=== PATIENT | female | born 1960 | race Caucasian/White ===

== ENCOUNTER 2019-06-17 14:28 | Outpatient (CLI) | payer MEDICARE ==
--- NOTE | 2019-06-17 14:50 | RAD ---
Exam: KUB HISTORY: Abdominal pain COMPARISON: None FINDINGS: There is a moderate amount retained stool within the colon. There are stable densities seen within the retained stool which may reflect ingested bismuth products. Bowel gas pattern otherwise is unobstructed. No additional suspicious calcifications are evident. There are phleboliths within th e lower pelvis. The umbilical limitation overlies the midline. There is mild spondylosis of the lumbar spine. There is mild degenerative changes of the left hip. IMPRESSION: Moderate amount of retained stool within the colon.
--- NOTE | 2019-06-17 14:53 | RAD ---
EXAM: Chest Two Views 06/17/2019 2:50 PM HISTORY: Chest pain COMPARISON: None. FINDINGS: Heart: Normal in size and contour. Pulmonary vessels: Normal. Costophrenic angles: Clear. Lungs: No confluent pneumonia, overt edema, pleural effusion, or other acute process. Pneumothorax: None. Osseous structures:Mild thoracolumbar scoliosis. Additional findings: Cholecystectomy IMPRESSION: No significant acute intrathoracic disease.
== END 2019-06-17 14:29 | disposition home or self-care (01) ==
LOC: RAD-FRANK 14:28
PROVIDERS: ATTEND Nurse Practitioner Family
DX: R07.9 Chest pain, unspecified (principal); R10.9 Unspecified abdominal pain; K59.00 Constipation, unspecified
CPT/HCPCS: 71046; 74018

== ENCOUNTER 2024-11-10 08:49 | Emergency (ER) | payer MEDICARE ==
[2024-11-10 10:12] LABS: #Basophils 0.03 10x3/uL (0.0-0.2); #Eosinophils Less than 0.03 10x3/uL (0.0-0.7); %Basophils 0.3 % (0.0-1.0); %Eosinophils 0.1 % (0.0-10.0); %Lymphocytes 19.9 % (21.0-51.0); %Monocytes 9.2 % (0.0-10.0); %Neutrophils 70.2 % (42.0-75.0); Hematocrit 45.4 % (36.0-47.0); Hemoglobin 15.5 g/dL (12.0-16.0); Mean Corpuscular HGB CONC 34.1 g/dL (32.0-36.0); Mean Corpuscular Hemoglobin 28.2 pg (27.0-31.0); Mean Corpuscular Volume 82.7 fL (78.0-98.0); Mean Platelet Volume 9.8 fL (7.4-10.4); Platelet Count 215 10x3/uL (130-400); RBC Distribution Width 12.7 % (11.5-14.5); Red Blood Cell (RBC) Count 5.49 mill/uL (4.20-5.40)
[2024-11-10 10:29] LABS: ALT (SGPT) 91 U/L (Less than 34); AST (SGOT) 69 U/L (11-34); Albumin 4.7 g/dL (3.1-4.5); Alkaline Phosphatase 120 U/L (40-110); Anion Gap 16 mmol/L (10-20); BUN (Urea Nitrogen) 9 mg/dL (9.8-20.1); Bilirubin, Total 0.9 mg/dL (0.3-1.2); Calc. Creatinine Clearance 0 mL/min (70-130); Calcium 10.2 mg/dL (7.8-10.44); Carbon Dioxide 24 mmol/L (23-31); Chloride 102 mmol/L (98-107); Estimated GFR 98; Globulin 3.7 g/dL (2.4-3.5); Glucose 138 mg/dL (80-115); Potassium 3.3 mmol/L (3.5-5.1); Protein, Total 8.4 g/dL (5.8-8.1); Sodium 139 mmol/L (136-145)
[2024-11-10] MEDS ORDERED: Diazepam 5 MG TAB ONE (11:01)
== END 2024-11-10 16:16 | disposition home or self-care (01) ==
LOC: ERS 08:49
DX: F11.23 Opioid dependence with withdrawal (principal); F13.230 Sedative, hypnotic or anxiolytic dependence with withdrawal, uncomplicated; F41.9 Anxiety disorder, unspecified; Z87.891 Personal history of nicotine dependence; E78.5 Hyperlipidemia, unspecified; Z79.899 Other long term (current) drug therapy
CPT/HCPCS: 36415; 70450; 71045; 72125; 80053; 85025; 93005

== ENCOUNTER 2025-07-28 12:43 | Outpatient (CLI) | payer MEDICARE ==
[~2025-07-28 12:43] MED LIST: Iopamidol 370 76% 100 ML VIAL ONE
[2025-07-28 13:32] LABS: Estimated GFR - POC 82.0
== END 2025-07-28 12:44 | disposition home or self-care (01) ==
LOC: CT 12:43
PROVIDERS: ATTEND Physician Assistant Medical
DX: K21.9 Gastro-esophageal reflux disease without esophagitis (principal); R10.13 Epigastric pain; R13.19 Other dysphagia; K62.5 Hemorrhage of anus and rectum; K59.00 Constipation, unspecified; N20.0 Calculus of kidney; N28.1 Cyst of kidney, acquired
CPT/HCPCS: 36415; 74177; 82565; Q9967